=== PATIENT | female | born 1995 | race Caucasian/White ===

== ENCOUNTER 2022-01-27 19:32 | Emergency (ER) | payer BC, OTHER ==
[~2022-01-27] VITALS: Ht 165.1 cm; Wt 69.5 kg
[2022-01-27 20:27] VITALS: BP 131/90
[2022-01-27] MEDS ORDERED: LORA-269 PO (21:13)
[2022-01-27] MEDS ORDERED: LORazepam 1 MG tablet PO ONE (21:15)
[2022-01-27] MEDS ORDERED: ondansetron 4mg rapidly disintigrating tab PO ONE (21:25)
[2022-01-27] MEDS ORDERED: ONDA4TAB12 PO (21:28)
== END 2022-01-27 21:42 | disposition home or self-care (01) ==
LOC: ER 19:34
DX: F41.9 Anxiety disorder, unspecified (principal); F32.A Depression, unspecified; Z79.899 Other long term (current) drug therapy
CPT/HCPCS: 99283